=== PATIENT | female | born 1995 | race African-American/Black ===

== ENCOUNTER 2025-07-16 10:12 | Emergency (ER) | payer BC | END 2025-07-16 11:05 | disposition home or self-care (01) | LOC: CSHERS 10:12 | DX: R42 Dizziness and giddiness (principal) | CPT/HCPCS: 99283 ==

== ENCOUNTER 2025-09-14 23:26 | Emergency (ER) | payer BC ==
[2025-09-14] MEDS ORDERED: HYDROcodone/Acetaminophen 5/325 mg Tablet ONE (23:46)
== END 2025-09-15 01:46 | disposition home or self-care (01) ==
LOC: CSHERS 23:26
DX: S52.591A Other fractures of lower end of right radius, initial encounter for closed fracture (principal); J45.909 Unspecified asthma, uncomplicated; W18.30XA Fall on same level, unspecified, initial encounter; Y93.21 Activity, ice skating
CPT/HCPCS: 29125; 99283